=== PATIENT | male | born 1940 | race Two or more races ===

== ENCOUNTER 2021-03-17 05:53 | Day surgery (SDC) | payer OTHER | END 2021-03-17 10:50 | disposition home or self-care (01) | LOC: AMB-ENDOS 05:53 | PROVIDERS: ATTEND Surgery | DX: D12.4 Benign neoplasm of descending colon (principal); Z20.822 Contact with and (suspected) exposure to COVID-19; Z12.11 Encounter for screening for malignant neoplasm of colon ==